=== PATIENT | male | born 1980 | race Caucasian/White ===

== ENCOUNTER 2024-02-01 07:16 | Observation (INO) ==
--- NOTE | 2023-11-07 10:34 | Anesthesiology Consultation ---
Date of Service November 07, 2023 Assessment & Plan (1) Encounter for pre-operative examination: - appendectomy now scheduled for 11/22/23 per [facility] EMR and [facility] general surgery office (the office also confirmed that procedure was R/S due to scheduling issues and nothing clinical for patient). Dr. Luz advised notifying surgeon's office appendectomy is planned four days before orthopedic surgery and consideration to postpone orthopedic surgery. Surgeon's office made aware. - Outpatient joint assessment: Patient is currently scheduled for inpatient pathway. If re-evaluated and patient/surgeon requests outpatient pathway, patient is acceptable candidate for outpatient joint program from anesthesia standpoint pending surgeon's office assessment of pt motivation/support/completion of same day joint program preop requirements. Chart Review Chart Review: Acceptable Risk for Surgery and Patient seen in Pre Admission Testing Teaching & Discussion Pre-Anesthesia Teaching/Discussion Notes: Instructed NPO after midnight before surgery, except medications with 15 cc of water. Medication instructions provided according to the PAT guidelines. History Surgery Operation Date: 11/26/23 09:00 Proposed Procedures p Left Unicompartment Knee Arthroplasty Vs. - Kiel Combs DO s Left Total Knee Arthroplasty - Kiel Combs DO Height/Weight Height: 5 ft 8 in Weight: 111.4 kg Allergies Allergy/AdvReac Type Severity Reaction Status Date / Time No Known Allergies Allergy Verified 10/25/23 14:45 Medications Home Medications Medication Instructions Recorded Confirmed Last Taken No Known Home Medications 10/25/23 10/25/23 Unknown Past Medical History Medical History Fatty liver noted on 09/2023 CT History of appendicitis (~09/2023) continued intermittent abdominal pain, following with PCP/general surgery Kidney stones (~09/2023) passed on own Left knee DJD Patient denies h/o stroke, seizures, heart attack, heart failure, DM, HTN, blood clots/DVTs or blood transfusions. Exercise / Class Metabolic Activity II 4-5 Yardwork/Stairs/Walk up hill (denies chest discomfort or shortness of breath with one flight of stairs) Past Surgical History Surgical History History of arthroscopy left knee Past Anesthesia History No Hx of Anesthesia Complications and No Family Hx of Anesthesia Complications History of PONV No Hx of PONV and No Hx of Motion Sickness Social History Smoking Status: Current every day smoker Smoking cigarettes per day: 2 cigs per day > advised npo Do You Dip or Chew Tobacco: Yes (advised npo) Hx Alcohol Use: No Hx Substance Use: No substance use type: does not use Review of Systems Patient denies chest pain, shortness of breath, dyspnea on exertion, snoring, witnessed apneas, reflux, fever, chills, cough, wheezing, or palpitations. Physical Exam Vital Signs Vitals BP 133/96 P 79 TEMP 98 SP02 95% on RA RESP 17 Physical Patient resting comfortably in chair in no acute distress, alert and oriented, responding appropriately throughout visit Full cervical extension range of motion without pain TMD 3.5 finger breadths Mallampati Score 3 Dentition: intact, denies chipped or loose teeth, caps/crowns, implants or bridges Lungs: normal respiratory effort. Good air movement, clear throughout to auscultation, no adventitious breath sounds Cardiac: regular rate and rhythm, no murmurs noted Carotid arteries: negative bruit bilat Lab Results Anesthesia Preop Results Results Anesthesia Widget: WBC 9.28 K/ul (4.8-10.8) 11/07/23 Hgb 15.8 g/dl (14.0-18.0) 11/07/23 Hct 44.9 % (42.0-52.0) 11/07/23 Plt 213 K/uL (130-400) 11/07/23 PT 10.3 Seconds (9.0-12.0) 11/07/23 PTT 29 Seconds (21-31) 11/07/23 INR 0.9 (0.9-1.1) 11/07/23 Blood Type A Negative 11/07/23 Antibody Screen NEGATIVE 11/07/23 Testing Laboratory Results 10/04/23 SODIUM: 139 POTASSIUM: 4 CHLORIDE: 107 CO2: 23 BUN: 14 CREATININE: 1 GLUCOSE: 91 Electrocardiogram Date: 10/30/23 NSR, rate 65 bpm Moderate voltage criteria for LVH, may be normal variant Chest X-Ray Date: 11/07/23 No acute cardiopulmonary findings.
--- NOTE | 2024-01-31 07:33 | History & Physical Report ---
Date of Service January 31, 2024 Assessment & Plan (1) Left knee DJD: We will proceed with a left partial knee replacement surgery. Postoperatively he will be started on aspirin for DVT prophylaxis and kept overnight in the hospital for postop medical management. He plans to use hospital home health upon discharge. History of Present Illness Chief Complaint: Medial compartmental arthritis of the left knee. Primary Care Provider: NO PCP Freddie is a pleasant 42-year-old male who works at [employer]. He had a chair kicked out from underneath him about a year ago while at work. He began having knee pain then. He denies any knee pain before the work-related incident. He then slipped on 05/18/2023 with a valgus-type injury. He had a lot of pain in his left knee. He says he feels his knee is giving out and is unstable. He says his knee is "dislocating." He saw my partner, Dr. Cade. He had an MRI of his knee and he had a left knee injection. Unfortunately, the MRI did show advanced arthritis mostly in the medial compartment of the left knee. He is really struggling with the left knee. He was placed on work restrictions. He was able to return to light duty for few weeks, but then he has since been off from work. After failing conservative treatment, he has elected to proceed with a left partial knee replacement. Allergies Allergy/AdvReac Type Severity Reaction Status Date / Time adhesive Allergy Intermediate removed Verified 01/23/24 13:32 skin Home Medications Medication Instructions Recorded Confirmed Type No Known Home Medications 10/25/23 10/25/23 History Past Med/Surg History Problem List Medial meniscus tear Left knee DJD Medical History History of anesthesia reaction (11/2023) bilat leg swelling after appendectomy [facility] History of appendicitis (~09/2023) continued intermittent abdominal pain, following with PCP/general surgery Fatty liver noted on 09/2023 CT Kidney stones (~09/2023) passed on own Left knee DJD Surgical History Hx of appendectomy (06/06/24) [facility] History of arthroscopy left knee Family History Other No family history of adverse response to anesthesia Social History Smoking Status: Current every day smoker Tobacco Type: Cigarettes and Smokeless Tobacco (Dip or Chew) Cigarettes Per Day: 2 cigs per day > advised npo; Second Hand Exposure: No; Do You Dip or Chew Tobacco: Yes (advised npo); Tobacco Cessation Education Requested by Patient: No Hx Alcohol Use: No Hx Substance Use: No Preferred Language: Wolof Communication Ability: Effective Laundry Routeman Required: No Beliefs That Will Affect Care: None Current Living Situation: Family Other Information That Helps Us Care for You: No Feels Safe at Home: Yes Safety Concerns: Feels Safe At This Time Assistive Devices: None and Walker Assistive Devices Comment: has walker for post op Review of Systems All systems reviewed & are unremarkable except as noted in HPI & below. Physical Exam On physical examination of the left knee, he has tenderness palpation of the distal medial femoral condyle and over the medial joint line.. Constitutional WD/WN, vitals as above Eyes PERRL, conjunctivae normal, anicteric sclerae ENMT external ear and nose normal, oropharynx normal Neck trachea midline, no thyromegaly Respiratory normal respiratory effort Cardiovascular RRR, no murmur, no edema Gastrointestinal (Abdomen) normal bowel sounds, soft, nontender, no hepatosplenomegaly Psychiatric A+Ox3, euthymic affect Results & Data Results & Data Laboratory Results . Diagnostic Findings X-rays of the left knee show advanced medial compartment arthritis with joint space narrowing, osteophyte formation, and [id number] articulation MRI of the left knee shows significant chondral loss of the medial compartment.. PG Care Time/CCT Total # of Minutes Spent Total Time Spent with Patient: Total time spent is greater than 50% in coordination of care (as documented) at patient's floor/unit and/or counseling patient: Coding Level of Care Code None Diagnoses Left knee DJD M17.12
[~2024-02-01 07:16] MED LIST: ROPIVACAINE 0.5% 5 MG/ML 30 ML VIAL ONE
--- NOTE | 2024-02-01 07:58 | History & Physical Bridge Note ---
Date of Service February 01, 2024 History & Physical Bridge Note I have examined the patient, reviewed the History & Physical and in the interval since the performance of the History & Physical I have noted the following changes of clinical significance: no changes noted
[2024-02-01] MEDS: dexAMETHasone**PF** 10 MG/ML VIAL IV SCH (08:00)
[2024-02-01] MEDS: GABAPENTIN 900 MG DOSE PO SCH (08:00)
[2024-02-01] MEDS: FAMOTIDINE 20 MG TAB PO SCH (08:00)
[2024-02-01] MEDS: ACETAMINOPHEN 500 MG TAB PO SCH ×2 (08:00→13:35)
[2024-02-01] MEDS: LR 500ML BOLUS, THEN 15ML/HR IV SCH (08:01)
[2024-02-01] MEDS: LR 60ML/HR IV SCH (08:01)
[2024-02-01 08:02] LABS: Basophils # (auto) 0.09 K/uL (0.00-0.20); Basophils % (auto) 0.9 %; Eosinophils # (auto) 0.32 K/uL (0.00-0.50); Eosinophils % (auto) 3.2 %; Hematocrit (blood only) 49.8 % (42.0-52.0); Hemoglobin 17.2 g/dl (14.0-18.0); Immature Granulocytes # (auto) 0.02 K/uL (0.01-0.20); Immature Granulocytes % (auto) 0.2 %; Lymphocytes # (auto) 4.53 K/uL (1.20-3.40); Lymphocytes % (auto) 45.8 %; Mean Corpuscular Hemoglobin 31.9 pg (25.0-34.0); Mean Corpuscular Hgb Conc 34.5 g/dL (32.0-36.0); Mean Corpuscular Volume 92.4 fL (80.0-100.0); Mean Platelet Volume 10.5 fL (9.4-12.4); Monocytes # (auto) 0.84 K/uL (0.11-0.59); Monocytes % (auto) 8.5 %; Neutrophils # (auto) 4.09 K/uL (1.40-6.50); Neutrophils % (auto) 41.4 %; Platelet Count 284 K/uL (130-400); RDW Coefficient of Variation 12.1 % (11.5-14.5); RDW Standard Deviation 41.3 fL (36.4-46.3); Red Blood Count 5.39 M/uL (4.70-6.10); White Blood Count 9.89 K/ul (4.8-10.8)
[2024-02-01] MEDS ORDERED: PROPOFOL IV EMULSION 10 MG/ML 20 ML VIAL IV ONE (08:08)
[2024-02-01] MEDS ORDERED: MIDAZOLAM HCL 1 MG/ML 2ML VIAL ONE ×2 (08:08)
[2024-02-01 08:16] LABS: BUN Creatinine Ratio 12.4 (10-20); Calcium 9.6 mg/dl (8.6-10.3); Creatinine Clr Calc Pharmacy 102.1 ml/min; Est GFR (African American) 91.8 ml/min; Est GFR (Non-African American) 79.2 ml/min
[2024-02-01] MEDS ORDERED: HYDROmorphone INJ 1 MG/ML SYRINGE IV PRN (08:25)
[2024-02-01] MEDS ORDERED: ONDANSETRON INJ 2 MG/ML 2 ML VIAL IV PRN ×2 (08:25→12:31)
[2024-02-01] MEDS ORDERED: KETOROLAC 30 MG/ML VIAL IV PRN (08:25)
[2024-02-01] MEDS ORDERED: ePHEDrine sulfate 50 MG/ML AMP IV PRN (08:25)
[2024-02-01] MEDS ORDERED: ATROPINE SULFATE 0.1 MG/ML 10ML SYR IV PRN (08:25)
[2024-02-01] MEDS ORDERED: fentaNYL citrate PF 100 MCG/2 ML VIAL ONE (08:26)
[2024-02-01] MEDS: TRANEXAMIC ACID 1,000 MG **IV Pre-op IV SCH (08:49)
[2024-02-01] MEDS: ceFAZolin 2000MG 2,000 MG/15 ML SYR IV SCH ×2 (09:11→16:58)
[2024-02-01] MEDS: ROPIV 0.5% 246mg, Ketorolac 30mg, EPINEPHrine 0.5mg in NSS INFIL SCH (10:01)
[2024-02-01] MEDS: ORTHO JOINT ANESTHETIC ONE (10:01)
[2024-02-01] MEDS: TRANEXAMIC ACID 1,000 MG **IV Intra-op IV SCH (10:15)
--- NOTE | 2024-02-01 10:22 | Operative Report ---
PG Post Operative Report Pre & Post Diagnosis Operation Date: 02/01/24 09:00 Pre-Op Diagnosis: Degenerative Joint Disease Left Knee Post-Op Diagnosis: Degenerative Joint Disease Left Knee I identified the patient and participated in the time-out.: Yes Procedure Operation Date: 02/01/24 09:00 Actual Procedures p Left Unicompartment Knee Arthroplasty(Left) - Kiel Combs DO Surgeon Kiel Combs DO Automotive Diagnostic Technician Kiel Mathur PA-C Estimated Blood Loss 30 Findings Consistent with Post-Op Diagnosis Specimens Left femoral tibial bone Description of Procedure Implants used: I used a Shilo persona partial knee replacement system with a size 7 femoral implant, a size G tibial implant, and a size 8 mm polyethylene bearing. On February 01, 2024 Freddie arrived at [facility] for the above procedure. He was seen in the preoperative holding area and the operative extremity identified and signed. Is given a preoperative antibiotic and a spinal anesthetic. He was taken back the operating room and laid on table in supine position. He was given basic sedation. The left knee was prepped and draped sterile fashion. A timeout was done. The patient and the operative extremity was properly identified. A midline incision was made just medial to the patella. Dissection was taken down through the fascia. A subvastus arthrotomy was used. The medial retinaculum was released and the medial compartment of the knee was exposed. There was extensive grade 4 chondral changes off the distal medial femoral condyle. The ACL was intact. I did not see any lateral compartmental or patellofemoral arthritis. A decision was made to do a partial knee replacement. The proximal tibial resection guide was placed. 4 mm was resected off the tibial plateau. The knee was then brought to full extension. A distal femoral cutting block was placed. The distal femur was then resected. The knee was then flexed. The distal femur measured to be a size 7. A size 7 femoral cutting block was then pinned into place. 2 peg holes were drilled. Posterior and chamfer cuts were then made. The tibia was then exposed. The medial meniscus was removed. The tibia measured to be a size G. A tibial cutting block was then pinned into place. 2 peg holes were drilled. The trial femoral component was then impacted into place. An 8 mm polyethylene bearing was then snapped into place. The knee was brought through full range of motion and felt to be stable. All trial components were then removed. The final size 7 femur and size G tibia components were then cemented in place with Biomet cement. After cement had dried an 8 mm polyethylene insert was then snapped into place. The knee was brought through full range of motion and felt to be stable. Surrounding soft tissues were injected with 100 cc of an orthopedic pain control cocktail. Hemostasis was obtained. The extensor mechanism was closed with #1 Vicryl. Skin was closed with 2-0 Vicryl, 3 oh V-Loc suture, and yury. He was then placed in a soft dressing. He was then taken to the postanesthesia care unit in stable condition. He tolerated the procedure well. Kiel Mathur PA-C, was present for the entire procedure. He was critical for patient positioning, prepping, draping, retraction exposure, wound closure and application of sterile dressing. I attest to the content of the Intraoperative Record and any orders documented therein. Any exceptions are noted below.
--- NOTE | 2024-02-01 11:07 | XRay Report ---
XR knee LT 1 or 2V routine CLINICAL HISTORY: Surgical Post Op TECHNIQUE: 2 views of the left knee were obtained. Comparison: Comparison is made to knee radiographs 06/12/2023 FINDINGS: Postoperative changes of partial arthroplasty is seen. IMPRESSION: Expected postoperative appearance status post placement of partial knee arthroplasty. ACT 112: Negative or not required by law. Electronically signed by: Cachorro Laird M.D. 02/01/2024 11:06 AM
--- OUTSIDE RECORDS SUMMARY | 2024-02-01 11:14 | External Medical Summary ---
Author Name Unknown Address Unknown Organization [facility] - [address] [facility] [id number] Laboratory Report Ordering Provider Test Date Status MICHAELA ROSAS 11/22/2023 06:36:26 Final Observation Date Value Abnormality Reference (Units ) Status Glucose Point of Care 11/22/2023 06:36:26 81 70-120 (mg/dL) Final Performing Location [facility] - [address] [facility] [id number]
--- OUTSIDE RECORDS SUMMARY | 2024-02-01 11:14 | External Medical Summary | Summary of Care ---
Author Name Unknown Organization [facility] Address [address] [place] [address] Phone [phone] Care Team Providers Care Automobile Mechanic Helper Name Role Phone Unavailable Primary Care Provider Unavailabl e Reason for Visit * Reason Comments Post Op Surgery Appendectomy 11/22/23 Encounter Details Date Type Department Care Team (Late st Contact Info) Description 12/07/2023 10:40 AM EDT Office Visit General Surgery, [facility] [address] [place] [id number] [place] [address] [place], [place] [id number] Postop check* Allergies No known active allergiesdocumented as of this encounter (statuses as of 12/07/2023) Medications Medication Sig Dispensed Refills Start Date End Date Status Buprenorphine HCl-Naloxone HCl 8-2 MG Sublingual Tablet Sublingual (Suboxone) Place under the tongue daily. Weaning off this for knee surgery upcoming uses every other day Active oxyCODONE-Acetamino phen 5-325 MG Oral Tablet (Percocet) Take 1 Tablet by mouth every 4 hours as needed for Pain, Moderate or Pain, Severe. 5 Tablet 11/22/2023 Active traMADol HCl 50 MG Oral Tablet (Ultram) Take 1 Tablet by mouth every 6 hours as needed for Pain, Moderate or Pain, Severe. 5 Tablet 11/22/2023 Active Additional Information Patient not taking.Reported on 12/07/2023 documented as of this encounter (statuses as of 12/07/2023) Active Problems Problem Noted Date Diagnosed Date Fatty liver 11/22/2023 Disease of appendix, unspecified 11/07/2023 Appendix disease 10/30/2023 Right lower quadrant abdominal pain 10/30/2023 Nephrolithiasis 10/22/2023 Opioid dependence, in remission 01/04/2021 documented as of this encounter (statuses as of 12/07/2023) Resolved Problems Problem Noted Date Diagnosed Date Resolved Date Ureterolithiasis 10/03/2023 10/22/2023 Hydronephrosis 10/03/2023 10/22/2023 documented as of this encounter (statuses as of 12/07/2023) Immunizations Name Administration Dates Next Due COVID-19 mRNA, LNP-s, No Pre serve, 2-Dose Series (Pfizer) 12/02/2020,11/04/2020 TDAP (age 10 and older)(Boostrix) 12/23/2018 documented as of this encounter Social History Tobacco Use Types Packs/Day Years Used Date Smoking Tobacco: Every Day Cigarettes Smokeless Tobacco: Current Tobacco Cessation:Ready to Q uit: No; Counseling Given: No Alcohol Use Standard Drinks/Week Comments No 0 (1 standard drink = 0.6 oz pur e alcohol) PHQ-2 Answer Date Recorded PHQ Adult Total Score 0 02/08/2021 Utilities Answer Date Recorded Do you have trouble paying y our heating, water, or electric bill? (Adult - for ages 18 years and over) Not on file 12/04/2023 Is your family able to pay t he heat, water, or electric bill? (Household - for ages 0-17 years) Not on file 12/04/2023 Does your family have access to good internet? (Household - for ages 0-17 years) Not on file 12/04/2023 Social Connections Answer Date Recorded How often do you feel lonely or isolated from those around you? (Adult - for ages 18 years and over) Not on file 12/04/2023 Sex and Gender Information Value Date Recorded Sex Assigned at Male 01/04/2021 3:08 PM EDT Gender Identity Male 01/04/2021 3:08 PM EDT Sexual Orientation Straight 01/04/2021 3: 08 PM EDT Job Start Date Occupation Industry Not on file Not on file Not on file documented as of this encounter Last Filed Vital Signs Vital Sign Reading Time Taken Comments Blood Pressure - - Pulse 67 12/07/2023 10:44 AM EDT Temperature 35.9 C (96.6 F) 12/07/2023 10:44 AM E DT Respiratory Rate - - Oxygen Saturation 96% 12/07/2023 10:44 AM EDT Inhaled Oxygen Concentration - - Weight 111.6 kg (246 lb) 12/07/2023 10:44 AM EDT Height 175.3 cm (5' 9") 12/07/2023 10:44 AM EDT Body Mass Index 36.33 12/07/2023 10:44 AM EDT documented in this encounter Functional Status Functional Status Response Date of Assess ment Are you deaf or do you have serious difficulty h earing? No 10/03/2023 Are you blind or do you have serious difficulty seeing, even when wearing glasses? No 10/03/2023 Do you have serious difficul ty walking or climbing stairs? (5 years old or older) No 10/03/2023 Do you have difficulty dress ing or bathing? (5 years old or older) No 10/03/2023 Because of a physical, menta l, or emotional condition, do you have difficulty doing errands alone such as visiting a doctor s office or shopping? (15 years old or older) No 10/03/19 Cognitive Status Response Date of Assessm ent Because of a physical, menta l, or emotional condition, do you have serious difficulty concentrating, remembering, or making decisions? (5 years old or older) No 10/03/2023 documented as of this encounter Progress Notes * Guille Aguirre MD - 12/07/2023 10:55 AM EDT SUBJECTIVE: Freddie Garnett is a 43 year old male. Chief Complaint Patient presents with Post Op Surgery Appendectomy 11/22/23 HPI: Freddie Garnett is being seen a little over 2 weeks status post laparoscopic appendectomy. He has occasional twinge of discomfort but otherwise no pain. His preoperative symptoms have resolved and he states he feels much better than he did prior to surgery. He has no nausea or vomiting. His bowels are moving. He had a reaction to the tape but there has no erythema or drainage from the incisions. The pathology revealed appendix with retention cyst. OBJECTIVE: PHYSICAL EXAM: Pulse 67 | Temp 35.9 C (96.6 F) (Tympanic) | Ht 1.753 m (5' 9") | Wt 111.6 kg (246 lb) | SpO2 96% | BMI 36.33 kg/m | BSA 2.33 m General: alert and no distress Abdomen: abdomen soft, non-tender, normal bowel sounds, and no masses or organomegaly ASSESSMENT: Z09 Postop check (primary encounter diagnosis) PLAN: He is doing well postoperatively. He can now begin to return to his normal activities of daily living and follow up as needed. Guille Aguirre MD 12/07/2023 documented in this encounter Nursing Notes * Beth Thompson LPN - 12/07/2023 10:45 AM EDT Chief Complaint Patient presents with Post Op Surgery Appendectomy 11/22/23 Pulse 67 | Temp 35.9 C (96.6 F) (Tympanic) | Ht 1.753 m (5' 9") | Wt 111.6 kg (246 lb) | SpO2 96% | BMI 36.33 kg/m | BSA 2.33 m documented in this encounter Plan of Treatment Health Maintenance Due Date Last Done Comments Lipid Panel 1980 Pneumococcal Vaccine: Pediatrics (0 to 5 Years) and At-Risk Patients (6 to 64 Years) (1 of 2 - PCV) 1986 HIV Screening 10/28/1995 Hepatitis B (2 of 3 - 3-dose series) 05/14/1998 04/16/1998 Hepatitis C Screening 1998 Depression Screening 02/08/2022 02/08/2021 COVID-19 Vaccine ( season) 2023 12/02/2020, 11/04/2020 Influenza Vaccine (FLU shot) (Season Ended) 2024 Diabetes Screening 11/21/2026 11/22/2023, 0 10/04/2023, 10/03/2023, Additional history exists DTaP,Tdap,and Td Vaccines (2 - Td or Tdap) 12/23/2028 12/23/2018 GARDASIL-HPV IMMUNIZATION SERIES Aged Out No longer eligible based on patient's age to complete this topic MENINGOCOCCAL (MENACTRA/MENVEO) Aged Out No longer eligible based on patient's age to complete this topic documented as of this encounter Medical Devices Not on filedocumented as of this encounter Visit Diagnoses Diagnosis Postop check- Primary Follow-up examination, following unspecified surgery documented in this encounter Advance Directives * Full Code (Latest Code Status on File) Date Activated Date Inactivated Comments 11/22/2023 6:21 AM 11/22/2023 3:45 PM This order ref lects the patients wishes and were consensually agreed upon. Question Answer Comments Discussion of Advance Directives occurred with: Patient * Full Code Date Activated Date Inactivated Comments 10/03/2023 8:30 PM 10/04/2023 1:01 PM This order r eflects the patients wishes and were consensually agreed upon. Question Answer Comments Discussion of Advance Directives occurred with: Patient Does the patient have a Living Will? No Does the patient have Health Care Power of Attor keara? No
--- OUTSIDE RECORDS SUMMARY | 2024-02-01 11:14 | External Medical Summary | Summary of Care ---
Author Name Unknown Organization [facility] Address [address] [place] [address] Phone [phone] Care Team Providers Care Pole Classifier Name Role Phone Unavailable Primary Care Provider Unavailabl e Reason for Visit * Reason Onset Date Comments Post-Op 11/26/2023 Post op call Encounter Details Date Type Department Care Team (Late st Contact Info) Description 11/26/2023 11:00 AM EDT Scheduled Telephone General Surgery, [facility] [address] [phone] [place], Nurse Follow Up Phone Call Schedule Gen Surg [address] [place], [place] [phone] Allergies No known active allergiesdocumented as of this encounter (statuses as of 11/26/2023) Medications Medication Sig Dispensed Refills Start Date End Date Status Buprenorphine HCl-Naloxone HCl 8-2 MG Sublingual Tablet Sublingual (Suboxone) Place under the tongue daily. Weaning off this for knee surgery upcoming uses every other day Active oxyCODONE-Acetaminoph en 5-325 MG Oral Tablet (Percocet) Take 1 Tablet by mouth every 4 hours as needed for Pain, Moderate or Pain, Severe. 5 Tablet 11/22/2023 Active traMADol HCl 50 MG Oral Tablet (Ultram) Take 1 Tablet by mouth every 6 hours as needed for Pain, Moderate or Pain, Severe. 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 Right lower quadrant abdominal pain 10/30/2023 Nephrolithiasis 10/22/2023 Opioid dependence, in remission 01/04/2021 documented as of this encounter (statuses as of 11/26/2023) Resolved Problems Problem Noted Date Diagnosed Date Resolved Date Ureterolithiasis 10/03/2023 10/22/2023 Hydronephrosis 10/03/2023 10/22/2023 documented as of this encounter (statuses as of 11/26/2023) Immunizations Name Administration Dates Next Due COVID-19 mRNA, LNP-s, No Pre serve, 2-Dose Series (Pfizer) 12/02/2020,11/04/2020 TDAP (age 10 and older)(Boostrix) 12/23/2018 documented as of this encounter Social History Tobacco Use Types Packs/Day Years Used Date Smoking Tobacco: Every Day Cigarettes Smokeless Tobacco: Current Alcohol Use Standard Drinks/Week Comments No 0 (1 standard drink = 0.6 oz pur e alcohol) PHQ-2 Answer Date Recorded PHQ Adult Total Score 0 02/08/2021 Sex and Gender Information Value Date Recorded Sex Assigned at Male 01/04/2021 3:08 PM EDT Gender Identity Male 01/04/2021 3:08 PM EDT Sexual Orientation Straight 01/04/2021 3: 08 PM EDT Job Start Date Occupation Industry Not on file Not on file Not on file documented as of this encounter Functional Status Functional Status Response [...] No 10/03/2023 documented as of this encounter Miscellaneous Notes * Telephone Encounter - Beth Thompson LPN - 11/26/2023 10:39 AM EDT PATIENT IS S/p appendectomy on 11/22/[address] Aguirre Pain Level- 1-10 " 4-5" Meds being taken for pain- ibuprofen Are pain meds effective- yes Incision sites- good Does the patient have a drain- no Does the patient have dressings? Are they aware of dressing instructions- no Appetite- fair Nausea/vomiting- no Bowel movement- yes Activity- as tolerated Complying with activity restrictions- yes Coughing and deep breathing- no Questions or concerns- legs swelling less today then yesterday , denies pain or tenderness of legs Post operative follow up scheduled for 12/07/23 documented in this encounter Plan of Treatment Upcoming Encounters Date Type Department Care Team (Late st Contact Info) Description 12/07/2023 10:40 AM EDT [place] [address] Guille Aguirre MD [address] [place] [address] Health Maintenance Due Date Last Done Comments Lipid Panel 1980 Pneumococcal Vaccine: Pediatrics (0 to 5 Years) and At-Risk Patients (6 to 64 Years) (1 of 2 - PCV) 1986 HIV Screening 10/28/1995 Hepatitis B (2 of 3 - 3-dose series) 05/14/1998 04/16/1998 Hepatitis C Screening 1998 Depression Screening 02/08/2022 02/08/2021 COVID-19 Vaccine (3 - season) 2023 12/02/2020, 11/04/2020 Influenza Vaccine (FLU [...] Not on filedocumented as of this encounter Advance Directives * Full Code [...]
--- OUTSIDE RECORDS SUMMARY | 2024-02-01 11:14 | External Medical Summary | Summary of Care ---
Author Name Unknown Organization [facility] Address [address] [place] [address] Phone [phone] Care Team Providers Care Cloth Shrinking Tester Name Role Phone Unavailable Primary Care Provider Unavailabl e Reason for Visit * Auth/Cert Specialty Diagnoses / Procedures Referred By Sari recinos Referred To Contact Diagnoses Disease of appendix, unspecified Disease of appendix, unspecified [K38.9] Procedures LAPAROSCOPY;APPENDECTOMY LAPAROSCOPIC APPENDECTOMY Guille Aguirre MD [address] [place] [address] [place] [address] Referral ID Status Reason Start Date Expiration Date Visits Re quested Visits Authorized [id number] Encounter Details Date Type Department Care Team (Latest Contact Info) Description 11/22/2023 6:19 AM EDT - 11/22/2023 11:40 AM EDT Hospital Encounter OR [facility], Operating Room, Main Hospital 1st Floor [address] [place] [address] Guille Aguirre MD [address] [place] [address] Discharge Disposition: Home - Self Care Allergies No known active allergiesdocumented as of this encounter (statuses as of 11/22/2023) Medications Medication Sig Dispensed Refills Start Date [...] as of this encounter (statuses as of 11/22/2023) Active Problems Problem Noted Date Diagnosed Date Fatty liver 11/22/2023 Disease of appendix, unspecified 11/07/2023 Appendix disease 10/30/2023 Right lower quadrant abdominal pain 10/30/2023 Nephrolithiasis 10/22/2023 Opioid dependence, in remission 01/04/2021 documented as of this encounter (statuses as of 11/22/2023) Resolved Problems Problem Noted Date Diagnosed Date Resolved Date Ureterolithiasis 10/03/2023 10/22/2023 Hydronephrosis 10/03/2023 10/22/2023 documented as of this encounter (statuses as of 11/22/2023) Immunizations Name Administration Dates Next Due COVID-19 mRNA, LNP-s, No Pre serve, 2-Dose Series (InCytu) 12/02/2020,11/04/2020 TDAP (age 10 and older)(Boostrix) 12/23/2018 [...] Sign Reading Time Taken Comments Blood Pressure 151/95 11/22/2023 11:30 AM EDT Pulse 71 11/22/2023 11:30 AM EDT Temperature 36.6 C (97.9 F) 11/22/2023 10:02 AM E DT Respiratory Rate 13 11/22/2023 11:30 AM EDT Oxygen Saturation 98% 11/22/2023 11:30 AM EDT Inhaled Oxygen Concentration - - Weight - - Height - - Body Mass Index - - documented in this encounter Functional Status Functional [...] No 10/03/2023 documented as of this encounter Discharge Instructions * Discharge Instr - AVS* Guille Aguirre MD - 11/22/2023 9:40 AM EDT Discharge Date: 11/22/2023 The information below provides you with the instructions and the list of medications you need to betaking following discharge from the hospital. If you have any questions, please ask before leaving.Please carry this letter with you when you see your doctor in the clinic. If you have questions, you can reach us at the numbers above. Post Anesthesia Instructions: 1. Do not drive today. 2. Resume driving when surgeon permits. 3. Do not make important decisions or sign legal documents today. 4. Call surgeon for: Temperature evaluation greater than 101 degrees Uncontrollable pain Excessive Bleeding Persistent Nausea and vomiting Medication intolerance (nausea, vomiting, or rash) 5. For nausea and vomiting use only clear liquids such as: tea, soda, bouillon until nausea subsides, then gradually increase diet as tolerated. 6. If you have any concerns or questions, call your surgeon's office at [phone] . If the physician is unavailable and it is an emergency, call 911 or go to the nearest emergency room. Special Care / Other: Instructions for: Laparoscopic Cholecystectomy INCISION CARE: If present, remove any outer dressing(s) in 24 hours. The incision(s) may be sealed with yury, askin adhesive (Dermabond), or covered with white adhesive tapes known as steri-strips. Either way there is no need to cover up the incisions again with gauze. SHOWER: You may shower 24 hours after surgery and get the incision(s) or steri-strips wet with soapy water and gently pat them dry. If the steri-strips come off in the shower, do not become concerned. If they are still in place 10 days after surgery, you may remove them. PAIN MEDICATION: You will be given a prescription for a narcotic pain medication (usually Vicodin or Percocet). Options for non-constipating pain medications include products that include ibuprofen or Tylenol. To combat constipation, you may take over the counter laxatives, fiber therapy, or prune juice. COMMON COMPLAINTS: Shoulder pain and gas pains from the carbon dioxide used during the procedure is common. Your body absorbs this gas naturally over a 48-72 hour period. Tylenol (Acetaminophen) or Ibuprofen (Motrin) is usually sufficient to relieve this discomfort. Activity : Do not do any heavy lifting (more than 10 pounds) or any vigorous exercise for 2 weeks. Return to School or Work: Limitations as above Diet: Resume previous diet Follow-up Visit with: Dr. Aguirre When: in 2 weeks Discharged To: Home documented in this encounter H&P Notes * Guille Aguirre MD - 11/22/2023 7:30 AM EDT HISTORY & PHYSICAL INTERVAL NOTE [facility] [address] [facility] [id number] History and Physical Update: Name: Freddie Garnett Location: [place] [facility]/[place] Date: 11/22/2023 Time: 7:30 AM DATE OF HISTORY AND PHYSICAL: 10/30/23 BP: 153 mmHg/98 mmHg (11/22/23647) Pulse: 60 (11/22/23647) Temp: 36.28 C (11/22/23647) Temp Summary: Temp Min: 36.3 C (97.3 F) Max: 36.3 C (97.3 F) SpO2: 98 % (11/22/23647) O2 flow rate: Supplemental O2 Delivery: Room Air, None (11/22/23647) Does patient take a beta los? No Did patient stop anticoagulants? None Heart Exam: regular rate and rhythm Lung Exam: clear to auscultation bilaterally Other Pertinent Physical Exam: Abdomen: Soft nontender nondistended I have reviewed the H&P previously performed and examined the patient today. There are no new findings noted. Source Note - Guille Aguirre MD - 10/30/2023 2:00 PM EDT SUBJECTIVE: Freddie Garnett is a 43 year old male. Chief Complaint Patient presents with NEW PATIENT Enlarged appendix HPI: Freddie Garnett is referred by Moriah Mariee PA-C for evaluation of an abnormal appendix. The patient states that he developed pain that was more in the right flank than anywhere else. He was evaluated and was found to have a UPJ obstructing kidney stone. The CT scan also showed a dilated appendix. It was 11 mm in size. In comparison to a CT scan he had in 2010 it was unchanged. There was no periappendiceal fat stranding. The patient had developed pain in the right lower quadrant at the same time that he had the right flank pain. The right flank pain resolved after having passed his kidney stone however the right lower quadrant abdominal pain has not. That pain persists. There has a dull ache they are all of the time. He does not get nausea or vomiting. He has not had fever or chills. His bowels are moving. There has no melena or hematochezia. He has no dysuria or hematuria. He was also concerned because his [id number] within the last 2 years as a result of sepsis secondary to ruptured appendicitis. Past Medical History: Diagnosis Date Kidney stone Opioid abuse (HCC) Past Surgical History: Procedure Laterality Date [place] ARTHROSCOPY KNEE DIAGNOSTIC W/WO SYNOVIAL BX SPX Left 1996 Current Outpatient Medications Medication Sig Dispense Refill Buprenorphine HCl-Naloxone HCl 8-2 MG Sublingual Tablet Sublingual (Suboxone) Place under the tongue daily. Weaning off this for knee surgery upcoming uses every other day No current facility-administered medications for this visit. Review of patient's allergies indicates: No Known Allergies Social History: Social History Tobacco Use Smoking status: Every Day Current packs/day: 0.50 Types: Cigarettes Smokeless tobacco: Current Substance Use Topics Alcohol use: No Vaping/E-Cigarette Use Vaping/E-Cigarette Use Never User Vaping/E-Cigarette Substances Vaping/E-Cigarette Devices OBJECTIVE: PHYSICAL EXAM: Pulse 82 | Temp 35.6 C (96.1 F) (Tympanic) | Ht 1.753 m (5' 9") | Wt 111.9 kg (246 lb 9.6 oz) |SpO2 97% | BMI 36.42 kg/m | BSA 2.33 m General: alert and no distress Head: Normocephalic, No masses, lesions, tenderness or abnormalities Neck: supple, no adenopathy Heart: regular rate & rhythm Lungs: chest symmetric with normal AP diameter, no chest deformities noted, no chest wall tenderness, lungs clear to auscultation Abdomen: abdomen soft, normal bowel sounds, and no masses or organomegaly, mild tenderness to moderate palpation in the right lower quadrant Back: back symmetric, no curvature, no costovertebral angle tenderness, range of motion is normal ASSESSMENT: K38.9 Appendix disease (primary encounter diagnosis) R10.31 Right lower quadrant abdominal pain PLAN: This patient has had an abnormal appendix appearance now for at least 3 years. He now has symptoms of discomfort and tenderness in the right lower quadrant. There has no evidence of acute appendicitis however I think it is likely that the enlarged appendix may be causing his symptoms. Were planningfor laparoscopic appendectomy. I explained the possible need to convert to an open procedure. We discussed the possible complications of that procedure and I answered his questions. He has signed a consent form. Guille Aguirre MD 10/30/2023 documented in this encounter Nursing Notes * Nelia Young, KIMI - 11/22/2023 11:38 AM EDT Vitals stable throughout. Able to tolerate PO fluids and void spontaneously. Verbalized understanding of discharge instructions. No questions, complaints, or concerns voiced. Discharged home w/ family. * Daniel Alegria RN - 11/13/2023 2:04 PM EDT PREOP PATIENT INFORMATION AND EDUCATION: MEDICATION INSTRUCTIONS: STOP taking the following medications the noted number of days prior to surgery/procedure unless otherwise specified by your surgeon: Please follow surgeon's instructions regarding use of Aspirin, Coumadin, Plavix, Eliquis, and any other blood thinner including NSAIDs (non-steroidal anti- inflammatory drugs, eg, Advil, Ibuprofen, Motrin, Aleve, Naproxen); if you have any questions regarding your anticoagulation therapy please contact your surgeon's clinic. Please verify any proposed stoppage of your anticoagulation therapy with the agent's prescribing provider. 10 days prior to surgery/procedure Stop all Herbal supplements, Green Tea, Turmeric, Melatonin, CBD, THC, etc. Stop all Vitamins (including Vitamin E) 24 hours prior to surgery/procedure DO NOT consume any alcohol. DO NOT use medical marijuana. DO NOT smoke or use tobacco products of any kind after midnight prior to surgery. *Using any of these products may increase your risks of procedural complications. IF IT IS LESS THAN RECOMMENDED STOPPAGE TIME PLEASE STOP AT TIME OF NOTIFICATION. FASTING RECOMMENDATIONS: To reduce risk, it is important for all elective surgery patients to follow the specific fasting guidelines listed below. If you have received more stringent guidelines, please follow the MOST RESTRICTIVE guidelines that you have been provided. DO NOT EAT after midnight on the night prior to your surgery date. You are allowed to drink clear liquids up to two hours prior to arrival time to the hospital or surgery center. Examples of clear liquids include water, clear fruit juice without pulp, clear carbonated beverages, clear tea, and black coffee. Any drinks given by your surgical service take as directed. /pediatric patients who currently drink breast milk, infant formula, and non-human milk must not eat after midnight. These patients are allowed to drink only the liquids listed below up to two hours prior to arrival time to the hospital or surgery center: Ingested Material Minimum Fasting Time Clear liquid After midnight up to 2 hours prior to arrival time Breast milk Up to 4 hours prior to arrival time Infant formula Up to 6 hours prior to arrival time Non-human milk Up to 6 hours prior to arrival time THE DAY BEFORE YOUR SURGERY: -Drink plenty of fluid the day before your surgery. Contact your surgeon's office if you develop any of the following within 2 weeks of surgery: A cold Infection Fever Shingles Chicken pox or exposure to chicken pox Open areas such as scrapes, cuts, rascon or other skin conditions Rashes GENERAL INSTRUCTIONS FOR PREPARING FOR SURGERY: BATHING INSTRUCTIONS: Bathe the evening prior to and the morning of surgery/procedure. Cleanse your body using ONLY anti-bacterial soap (eg, Dial, Safeguard) or any specific soap/cleansers and instructions provided by your surgeon (eg, Chlorhexidine). -You should brush your teeth the morning of surgery. Do NOT apply any lotions, powders, sprays, creams, oils, make-up, or deodorants after bathing. No hairspray, or nail irish on fingers or toes. Day of surgery/procedure do not use tampons. If you wear contacts wear your eyeglasses if available otherwise bring your contact supplies with you to remove them prior to your surgery/procedure. If you wear glasses or dentures, please bring cases in which you can store them during your surgery. Please remove all piercings and jewelry and leave them at home. Wear comfortable and loose clothing. -Please leave all valuables at home. -If you use a CPAP and are staying overnight, please bring your mask and tubing with you to the hospital. -If you use an assistive mobility device (walker, cane, etc), please label it with your name and bring to hospital. -An escort company truck driver is required if you are being discharged the same day of the surgery. You should have a responsible adult over the age of 18 [address] you home. This person should be present with youin the hospital at the time of discharge and for the first 24 hours after the surgery to support your needs. If you are taking a taxi home, you must have your responsible green party accompany you in the taxi ride home at the time of discharge. OR times subject to change. Please check voicemail messages the day/evening before your surgery forany updates. PRE-OP: You will be taken to the pre-op area where your vital signs (blood pressure, pulse and temperature)will be taken. Any preparations that need to be done will be done there. When it is time for your surgery, you will be taken to the operating room. PARENTS OF PEDIATRIC PATIENTS WILL BE ALLOWED TO STAY WITH THEIR CHILDREN UNTIL THEY ARE ESCORTED TO THE OPERATING ROOM OUTPATIENT SURGERY PATIENTS: After your surgery you will be taken to the Same Day Surgery Unit when you are awake and will go home from there. You will get instructions about your home care before you leave. Arrange to have someone drive you home from the hospital. You may not drive for 24 hours after anesthesia. You must havean adult stay with you at home for 24 hours after your operation. This is very important. If you are not able to comply with these guidelines, your Short Stay surgery cannot be done. ADMISSION PATIENTS: After your stay in the recovery area, you will be taken to your room. Your family may visit you in your room based on current visitation policy. If a next day discharge is expected, it is important to make arrangements for a company truck driver to take you home. Please be aware our visitation policies are subject to change Professionals, attendants, caregivers or family members are allowable visitors for patients with intellectual, developmental or cognitive disabilities, communication barriers or behavioral concerns. Because patients' and families' needs vary, they will be taken into account when applying visitation restrictions. [facility]: ext 4 Please enter through the Main Entrance of the [facility] which is directly across from the main parking lot. Stop at the registration desk, which is inside the main entrance, to register first. They will then direct you back to Same Day Surgery. You will be called the day before surgery (on Sunday if your surgery is Sunday) with the time to be at the hospital. If you have notbeen called by 4:00 p.m., please call [phone] and ask for the nursing color control supervisor. THANK YOU FOR CHOOSING [facility]! documented in this encounter OR Notes * OR Surgeon - Guille Aguirre MD - 11/22/2023 9:49 AM EDT [facility] [address] [facility] [id number] OPERATIVE REPORT Name: Freddie Garnett Date: 11/22/2023 Time: 9:49 AM Location: [facility] Service: General Surgery Date of Operation: 11/22/2023 Pre-op Diagnosis: Abnormal appendix Post-op Diagnosis: Same Surgeon: Guille Aguirre MD Assistants: None Anesthesia: General endotracheal anesthesia Operation: Laparoscopic appendectomy Findings: For all but the proximal 1-1/2 to 2 cm the appendix was dilated. It was firm. There was no surrounding fatty thickening. There was no fluid. There was no evidence of perforation. There was no abscess. The proximal 1-1/2 to 2 cm of the appendix appeared normal. The cecum appeared normal especially at the base of the appendix. The visible small bowel appeared normal. Case Acuity: Urgent Wound Class: Clean Specimen and Disposition: Appendix to Pathology Estimated Blood Loss: 10 mL Fluids: 1000 mL Urine Output: 200 mL Drains/Implants: none Complications: none Postoperative Condition: stable Indications and History: The patient had been having pain mostly in the right flank area but also in the right lower quadrant. He had a UPJ obstructing kidney stone that passed a kidney stone in the flank pain resolved but the right lower quadrant pain did not. During the evaluation for the discomfort he had a CT scan thatdemonstrated a dilated appendix with diameter of 11 mm. This was compared to a CT scan in 2010 and was unchanged. Had no nausea or vomiting but only the persistent intermittent dull ache. Description of Operation: The patient was identified and taken to the operating room and placed on the operating table and positioned. He was administered general anesthesia and the area was prepped and draped in the usual sterile fashion. A time-out was held. The skin and subcutaneous tissue inferior to the umbilicus was anesthetized with 0.5% Marcaine. Skin incision was made carried down through the subcutaneous tissue to the fascia which was grasped with 2 Ariadna clamps incised between. The peritoneum was identified incised and the introducer was placed bluntly. The abdomen was then insufflated to a pressure of 15 mmHg with carbon dioxide. A site for the lower midline introducer was identified chosen. The skin layers were similarly anesthetized. Incision was made the introducer was placed under direct vision. The patient had a generous omentum and he would to be placed in Trendelenburg and steep left airplaneposition and I was then able to retract the omentum out of the right lower quadrant. I then retracted the small bowel out of the right lower quadrant that exposed the appendix. Site for the left lower quadrant introducer was then chosen. The layers were anesthetized and incision was made the introducer was placed under direct vision. Traction was placed anteriorly on the appendix and some of the attachment of the appendix to the posterior abdominal wall were taken down which allowed me to further elevate the appendix. I was then able to establish a plane between the appendix and the mesoappendix at its base that I divided the mesoappendix with the vascular load of the Endo-ELEAZAR stapler. There were 2 areas of oozing along that staple line that were controlled easily with clips. The appendixwas then elevated. It was identified to have been freed down to the base of the appendix at its junction with the cecum. The appendix was then amputated off the cecum using the blue load of the Endo-ELEAZAR stapler. The appendix was placed into an endobag and brought out through the left lower quadrantintroducer site. That introducer was replaced. The right lower quadrant was irrigated. There were 2other areas of oozing along the omental dissection points that were controlled with clips. The right lower quadrant was irrigated the irrigation was removed that was repeated until the return was clear. As much fluid that I could removed from the pelvis was also removed. I then waited 3 minutes by the clock and reinspected the right lower quadrant than there was no evidence of any further bleeding. The introducers were removed after the gas was allowed to escape from the abdomen. The fascia of the umbilical and left lower quadrant introducer sites was closed with interrupted 0 Vicryl the skinof all the incisions was closed with 4-0 Monocryl in either an interrupted or running subcuticular fashion. The skin was further anesthetized with the same local at all the incision sites. The skin was then cleansed and dried. Mastisol was placed and Steri-Strips were applied. Sponge needle and instrument counts were correct x2 prior to closure. Patient tolerated the surgical procedure without complication was transferred to recovery. Attestation: I performed the procedure Guille Aguirre MD 11/22/2023 This chart was completed in part utilizing The [employer] Direct Voice Recognition Software. Grammatical errors, random word insertions, prounoun erros, and incomplete sentences are an occasional consequence of this system due to software limitations, ambient noise, and hardware issues. Any formal questions or concerns about the content, text, or information contained within the body of this dictation should be directly addressed to the provider for clarification documented in this encounter Plan of Treatment Upcoming Encounters Date Type Department Care Team (Late st Contact Info) Description 11/26/2023 11:00 AM EDT Scheduled Telephone General Surgery, [address] [address] [facility], Nurse Follow Up Phone Call Schedule Gen Surg [address] [place] [id number] 12/07/2023 10:40 AM EDT Office Visit General Surgery, [address] [address] Guille Aguirre MD [address] [place] [id number] Pending Results Name Type Priority Associated Diagnoses Date /Time SURGICAL PATHOLOGY Pathology Routine Disease of appendix, unspecified 11/22/2023 8:30 AM EDT Scheduled Orders Name Type Priority Associated Diagnoses Orde r Schedule SURGICAL PATHOLOGY Pathology Routine Disease of appendix, unspecified Release Upon Ordering for 1 Occurrences starting 11/22/2023, 1 completed Scheduled Procedures Name Priority Associated Diagnoses Date/Ti me LAPAROSCOPIC APPENDECTOMY Disease of appendix, unspecified 11/22/2023 7:00 AM EDT Health Maintenance Due Date Last Done Comments [...] Not on filedocumented as of this encounter Procedures Procedure Name Priority Date/Time Associated Diagnosis Comments GLUCOSE METER, POINT OF CARE LUIS 11/22/2023 6:36 AM EDT documented in this encounter Results * GLUCOSE METER, POINT OF CARE (11/22/2023 6:36 AM EDT) Glucose Meter 81 70 - 120 mg/dL 11/22/2023 6:47 AM EDT LABORATORY [facility] Blood Whole blood specimen / Unknown 11/22/2023 6:36 AM EDT 11/22/2023 6:47 AM EDT Guille Aguirre MD LAB POINT OF CARE TE ST DOCKED DEVICE U[facility]OLICITED [facility] [id number] [place] [address] documented in this encounter Visit Diagnoses Diagnosis Disease of appendix, unspecified- Primary Disease of appendix, unspecified documented in this encounter Administered Medications Inactive Administered Medications - up to 3 most recent administrations Medication Order MAR Action Action Date Dose Rate Site Acetaminophen (Tylenol) tab 975 mg 975 mg, Oral, PREOP, First dose on Kaleigh 11/22/23 at 0700, Last dose on Kaleigh 11/22/23 at 0700, For 1 dose, Maximum 4 g acetaminophen/day. Avoid in patients with severe hepatic impairment or severe active liver disease. Administer 60 minutes prior to OR., Pre-Op Given 11/22/2023 6:29 AM EDT 975 mg ceFAZolin in dextrose (Ancef) ivpb 2 g 2 g, IV Piggyback, PREOP, 1 dose, First dose on Kaleigh 11/22/23 at 0700, Administer 60 minutes prior to skin incision, Pre-Op New Bag 11/22/2023 7:25 AM EDT 2 g 100 mL/hr Gabapentin (Neurontin) cap 300 mg 300 mg, Oral, PREOP, First dose on [place]aleigh 11/22/23 at 0700, Last dose on Kaleigh 11/22/23 at 0700, For 1 dose, Reduce dose to 100mg for renal impairment with CrCl less than 30 ml/min or for age above 65 years old Avoid if Alzheimer/dementia and CVA in past 3 months. Do Not use with Pregabalin. Administer 60 minutes prior to OR, Pre-Op Given 11/22/2023 6:29 AM EDT 300 mg HYDROmorphone (Dilaudid) inj 0.5 mg 0.5 mg, IV Push, Q5 MIN PRN Pain, Severe, Pain, Moderate, Starting on Kaleigh 11/22/23 at 1025, Until Kaleigh 11/22/23 at 1545, For 8 doses, Administer only postop in PACU. Hold for respiratory rate less than 12. Administer up to a total of 4 mg., PACU isolyte-S pH 7.4 infusion Intravenous, at 25 mL/hr, Plasma-LYTE 148, isolyte-S, and isolyte-S pH 7.4 are considered equivalent - including for MAR barcode scanning., CONTINUOUS, Starting on Kaleigh 11/22/23 at 0700, Until [place] 11/22/23 at 1545, Pre-Op Rate Change 11/22/2023 9:06 AM EDT 900 mL/hr Continue from Pre-Op 11/22/2023 7:28 AM EDT 25 mL/hr New Bag 11/22/2023 6:49 AM EDT 25 mL/hr ondansetron (Zofran) inj 4 mg 4 mg, IV Push, Q6H PRN Nausea, Starting on [place] 11/22/23 at 1025, Until [place] 11/22/23 at 1545, For 1 day, Administer only during the first hour post-op in PACU., PACU oxygen GAS Inhalation, OXYGEN, First dose on Kaleigh 11/22/23 at 1100, Until Discontinued, Device/Managed by: Low Flow Device, Goal SPO2 (%): 91-95, Starting Device: Nasal Cannula, Initial Flow Rate (LPM): 2, Lowest Support: Nasal Cannula: Flow 0-6 LPM. Titrate up/down by 1 LPM., Higher Support: Non-Rebreather (NRB) Mask: Minimum of 10 LPM. Titrate to maintain bag inflation., Titration Interval: Q2 minutes and as needed., Notify Provider: Other, Notify Provider [other]: If SpO2 less than 88% or NOT maintaining SpO2 greater than 92% notify physician immediately., Until awake OR SpO2 greater than 95% for 15 minutes, then Titrate O2 flow rate down to maintain SpO2 greater than 92% If SpO2 is less than 88% place patient on NRB mask at 10 LPM documented in this encounter Active and Recently Administered Medications Times are shown in EDT. Scheduled Medication Order 11/20/2023 11/21/2023 11/22/2023 Acetaminophen (Tylenol) tab 975 mg (COMPLETED) 975 mg, Oral, PREOP, First dose on Kaleigh 11/22/23 at 0700, Last dose on [place] 11/22/23 at 0700, For 1 dose, Maximum 4 g acetaminophen/day. Avoid in patients with severe hepatic impairment or severe active liver disease. Administer 60 minutes prior to OR., Pre-Op 06 (Given - Provid er: Nelia Young RN) ceFAZolin in dextrose (Ancef) ivpb 2 g (COMPLETED) 2 g, IV Piggyback, PREOP, 1 dose, First dose on [place]aleigh 11/22/23 at 0700, Administer 60 minutes prior to skin incision, Pre-Op 07 (New Bag - Prov ider: Nelia Young RN) Gabapentin (Neurontin) cap 300 mg (COMPLETED) 300 mg, Oral, PREOP, First dose on Kaleigh 24 at 0700, Last dose on K[place] 11/22/23 at 0700, For 1 dose, Reduce dose to 100mg for renal impairment with CrCl less than 30 ml/min or for age above 65 years old Avoid if Alzheimer/dementia and CVA in past 3 months. Do Not use with Pregabalin. Administer 60 minutes prior to OR, Pre-Op 06 (Given - Provid er: Nelia Young RN) oxygen GAS Inhalation, OXYGEN, First dose on Kaleigh 11/22/23 at 1100, Until Discontinued, Device/Managed by: Low Flow Device, Goal SPO2 (%): 91-95, Starting Device: Nasal Cannula, Initial Flow Rate (LPM): 2, Lowest Support: Nasal Cannula: Flow 0-6 LPM. Titrate up/down by 1 LPM., Higher Support: Non-Rebreather (NRB) Mask: Minimum of 10 LPM. Titrate to maintain bag inflation., Titration Interval: Q2 minutes and as needed., Notify Provider: Other, Notify Provider [other]: If SpO2 less than 88% or NOT maintaining SpO2 greater than 92% notify physician immediately., Until awake OR SpO2 greater than 95% for 15 minutes, then Titrate O2 flow rate down to maintain SpO2 greater than 92% If SpO2 is less than 88% place patient on NRB mask at 10 LPM 1100 (Due) Continuous Medication Order 11/20/2023 11/21/2023 11/22/2023 isolyte-S pH 7.4 infusion Intravenous, at 25 mL/hr, Plasma-LYTE 148, isolyte-S, and isolyte-S pH 7.4 are considered equivalent - including for MAR barcode scanning., CONTINUOUS, Starting on Kaleigh 11/22/23 at 0700, Until [place] 11/22/23 at 1545, Pre-Op 0649 (New Bag - Prov ider: Nelia Young RN)0728 (Continue from Pre-Op - Provider: So Arthur CRNA/SHAILA)0906 (Rate Change - Provider: So Arthur CRNA/SHAILA)0907 (Anes Intra-Op Fluid - Provider: So Arthur CRNA/SHAILA) PRN Medication Order 11/20/2023 11/21/2023 11/22/2023 bupivacaine (Sensorcaine) 0.5 % inj (CANCELED) ONCE PRN INTRA PROCEDURE, Starting on Kaleigh 11/22/23 at 0809, Until [place] 11/22/23 at 1007, Intra-Op 0809 (Given - Provid er: Guille Aguirre MD - Comment: trocar sites X3) HYDROmorphone (Dilaudid) inj 0.5 mg 0.5 mg, IV Push, Q5 MIN PRN Pain, Severe, Pain, Moderate, Starting on Kaleigh 6//24 at 1025, Until Kaleigh 6//24 at 1545, For 8 doses, Administer only postop in PACU. Hold for respiratory rate less than 12. Administer up to a total of 4 mg., PACU ondansetron (Zofran) inj 4 mg 4 mg, IV Push, Q6H PRN Nausea, Starting on Kaleigh 6//24 at 1025, Until Kaleigh 6//24 at 1545, For 1 day, Administer only during the first hour post-op in PACU., PACU sodium chloride IR 0.9 % irrigation (CANCELED) ONCE PRN INTRA PROCEDURE, Starting on Kaleigh 24 at 0900, Until Kaleigh 624 at 1007, Intra-Op 0900 (Given - Provid er: Guille Aguirre MD - Comment: used for irrigation) documented in this encounter Advance Directives * [...]
--- OUTSIDE RECORDS SUMMARY | 2024-02-01 11:14 | External Medical Summary | Summary of Care ---
Author Name Unknown Organization [facility] Address [address] [place] [address] Phone [phone] Care Team Providers Care Environmental Inspector Name Role Phone Unavailable Primary Care Provider Unavailabl e Reason for Visit * Reason Onset Date Comments Appointment 11/19/2023 Pt caled to let me know he broke a tooth and can not get into see dentist till after surgery. Encounter Details Date Type Department Care Team (Late st Contact Info) Description 11/19/2023 Telephone General Surgery, [place] [id number] [facility], [place] [address] Appointment (Pt caled to let me know he br... Allergies No known active allergiesdocumented as of this encounter (statuses as of 11/19/2023) Medications Medication Sig Dispensed Refills Start Date End Date Status Buprenorphine HCl-Naloxone HCl 8-2 MG Sublingual Tablet Sublingual (Suboxone) Place under the tongue daily. 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 Right lower quadrant abdominal pain 10/30/2023 Nephrolithiasis 10/22/2023 Opioid dependence, in remission 01/04/2021 documented as of this encounter (statuses as of 11/19/2023) Resolved Problems Problem Noted Date Diagnosed Date Resolved Date Ureterolithiasis 10/03/2023 10/22/2023 Hydronephrosis 10/03/2023 10/22/2023 documented as of this encounter (statuses as of 11/19/2023) Immunizations Name Administration Dates Next Due COVID-19 [...] Telephone Encounter - Beth Thompson LPN - 11/19/2023 1:36 PM EDT Pt called in made us aware he had broke a tooth and no dental apt until after Surgery 11/22/23. Denies any signs of infection with this tooth injury. No swelling no drainage to severe pain documented in this encounter Plan of Treatment Upcoming Encounters Date Type Department Care Team (Latest Contact Info) Description 11/22/2023 7:30 AM EDT Hospital Encounter OR [facility], Operating Room, [facility] 1st [address] [place] [address] Guille Aguirre MD [address] [place] [address] 11/22/2023 7:30 AM EDT - 11/22/2023 10:01 AM EDT Surgery OR [facility], Operating Room, [facility] [address] [address] Guille Aguirre MD [address] [place] [address] LAPAROSCOPIC APPENDECTOMY 11/26/2023 11:00 AM EDT Scheduled Telephone General Surgery, [place] [address] [facility], Nurse Follow Up Phone Call Schedule Gen Surg [address] [place] [address] 12/07/2023 10:40 AM EDT Office Visit General Surgery, [address] [address] Guille Aguirre MD [address] [place] [phone] Scheduled Procedures Name Priority Associated Diagnoses Date/Ti me LAPAROSCOPIC APPENDECTOMY Disease of appendix, unspecified 11/22/2023 7:30 AM EDT Health Maintenance Due Date Last [...] (FLU shot) (Season Ended) 2024 Diabetes Screening 10/03/2026 10/04/2023, 0 10/03/2023, 09/30/2022, Additional history exists DTaP,Tdap,and Td Vaccines (2 [...] on File) Date Activated Date Inactivated Comments 10/03/2023 8:30 PM 10/04/2023 1:01 PM This order r eflects the patients wishes and were consensually agreed upon. Question Answer Comments Discussion of Advance Directives occurred with: Patient Does the patient have a Living Will? No Does the patient have Health Care Power of Attor keara? No
--- OUTSIDE RECORDS SUMMARY | 2024-02-01 11:15 | External Medical Summary | Summary of Care ---
Author Name Unknown Organization [facility] Address [address] [place] [address] Phone [phone] Care Team Providers Care Police Radio Dispatcher Name Role Phone Unavailable Primary Care Provider Unavailabl e Reason for Visit * Reason Onset Date Comments Advice 11/08/2023 Pt lmom having i ssues scheduling knee surgery due to his appendectomy cancelled and rescheduled Encounter Details Date Type Department Care Team (Late st Contact Info) Description 11/08/2023 Telephone General Surgery, [place] [address] [facility], [place] [address] Advice (Pt lmom having issues scheduling k... Allergies No known active allergiesdocumented as of this encounter (statuses as of 11/08/2023) Medications Medication Sig Dispensed Refills Start Date End Date Status Buprenorphine HCl-Naloxone HCl 8-2 MG Sublingual Tablet Sublingual (Suboxone) Place under the tongue daily. 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/30/2023 Right lower quadrant abdominal pain 10/30/2023 Nephrolithiasis 10/22/2023 Opioid dependence, in remission 01/04/2021 documented as of this encounter (statuses as of 11/08/2023) Resolved Problems Problem Noted Date Diagnosed Date Resolved Date Ureterolithiasis 10/03/2023 10/22/2023 Hydronephrosis 10/03/2023 10/22/2023 documented as of this encounter (statuses as of 11/08/2023) Immunizations Name Administration Dates Next Due COVID-19 [...] Telephone Encounter - Beth Thompson LPN - 11/08/2023 11:45 AM EDT Pt frustrated with scheduling knee surgery @ [facility] being told he can't have knee surgery due to appendectomy cancelled and rescheduled 6/6/24 documented in this encounter Plan of Treatment Upcoming Encounters Date Type Department Care Team (Latest Contact Info) Description 11/22/2023 7:30 AM EDT Hospital Encounter OR [facility], Operating Room, [facility] 1st Floor [address] [place] [address] Guille Aguirre MD [address] [place] [address] 11/22/2023 7:30 AM EDT - 11/22/2023 10:01 AM EDT Surgery OR [facility], Operating Room, [facility] 1st Floor [address] [place] [address] Guille Aguirre MD [address] [place] [address] LAPAROSCOPIC APPENDECTOMY 11/26/2023 11:00 AM EDT Scheduled Telephone General Surgery, [address] [address] [facility], Nurse Follow Up Phone Call Schedule Gen Surg [address] [place] [address] 12/07/2023 10:40 AM EDT Office Visit General Surgery, [address] [address] Guille Aguirre MD [address] [place] [address] Scheduled Procedures Name Priority Associated Diagnoses Date/Ti [...]
--- OUTSIDE RECORDS SUMMARY | 2024-02-01 11:15 | External Medical Summary | Summary of Care ---
Author Name Unknown Organization [facility] Address [address] [place] [address] Phone [phone] Care Team Providers Care Leasing Agent Name Role Phone Unavailable Primary Care Provider Unavailabl e Encounter Details Date Type Department Care Team ([facility] Contact Info) Description 11/07/2023 Orders Only General Surgery [address] [place] [address] Guille Aguirre MD [address] [place] [address] Disease of appendix, unspecified* Allergies No known active allergiesdocumented as of this encounter (statuses as of 11/07/2023) Medications Medication Sig Dispensed Refills Start Date End Date Status Buprenorphine HCl-Naloxone HCl 8-2 MG Sublingual Tablet Sublingual (Suboxone) Place under the tongue daily. 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/30/2023 Right lower quadrant abdominal pain 10/30/2023 Nephrolithiasis 10/22/2023 Opioid dependence, in remission 01/04/2021 documented as of this encounter (statuses as of 11/07/2023) Resolved Problems Problem Noted Date Diagnosed Date Resolved Date Ureterolithiasis 10/03/2023 10/22/2023 Hydronephrosis 10/03/2023 10/22/2023 documented as of this encounter (statuses as of 11/07/2023) Immunizations Name Administration Dates Next Due COVID-19 [...] Progress Notes * Guille Aguirre MD - 11/07/2023 12:41 PM EDT Orders placed to reschedule laparoscopic appendectomy documented in this encounter Plan of Treatment Upcoming Encounters Date Type Department Care Team (Late st Contact Info) Description 11/26/2023 11:00 AM EDT Scheduled Telephone General Surgery, [facility] [address] [place] [address] [facility], Nurse Follow Up Phone Call Schedule Gen Surg [address] [place] [address] 12/07/2023 10:40 AM EDT Office Visit General Surgery, [facility] [address] [place] [address] [place] [address] [place] [address] Scheduled Procedures Name Priority Associated Diagnoses Date/Ti me LAPAROSCOPIC APPENDECTOMY Disease of appendix, unspecified Health Maintenance Due Date Last Done Comments Lipid Panel 1980 Pneumococcal Vaccine: Pediatrics (0 to 5 Years) and At-Risk Patients (6 to 64 Years) (1 of 2 - PCV) 1986 HIV Screening 10/28/1995 Hepatitis B (2 of 3 - 3-dose series) 05/14/1998 04/16/1998 Hepatitis C Screening 1998 Depression Screening 02/08/2022 02/08/2021 COVID-19 Vaccine ( - season) 2023 12/02/2020, 11/04/2020 Influenza Vaccine [...] as of this encounter Visit Diagnoses Diagnosis Disease of appendix, unspecified- Primary documented in this encounter Advance Directives * [...]
--- NOTE | 2024-02-01 11:40 | Anesthesiology Progress Note ---
Date of Service February 01, 2024 Anesthesia Post Procedure Vital Signs Vital Signs: Temp Pulse Pulse Resp BP Pulse Ox O2 Del Method 02/01/24 11:30 61 14 112/68 95 Room Air 02/01/24 11:20 37.2 C 64 14 116/68 94 Room Air 02/01/24 11:05 57 L 12 120/73 98 Room Air 02/01/24 10:55 63 19 118/70 98 Room Air 02/01/24 10:45 68 18 127/67 98 Oxymask 02/01/24 10:36 36.5 C 67 15 113/75 96 Oxymask 02/01/24 07:50 36.7 C 95 H 20 168/106 H 96 Room Air O2 Flow Rate 02/01/24 11:30 02/01/24 11:20 02/01/24 11:05 02/01/24 10:55 02/01/24 10:45 3 02/01/24 10:36 6 02/01/24 07:50 Transfer of Care Handoff Completed per policy Notes Mental Status: alert / awake / arousable Patient Amnestic to Procedure: Yes Nausea / Vomiting: adequately controlled Pain: adequately controlled Airway Patency, RR, SpO2: stable & adequate BP & HR: stable & adequate Hydration State: stable & adequate Neuraxial Anesthesia: was administered and sensory block is resolving Anesthetic Complications: no major complications apparent
[2024-02-01] MEDS ORDERED: NALOXONE HCL 0.4 MG/1 ML VIAL/CARP IV PRN (12:31)
[2024-02-01] MEDS ORDERED: MAGNESIUM HYDROXIDE SUSP 30 ML UDC PO PRN (12:31)
[2024-02-01] MEDS ORDERED: bisacodyL 10 MG SUPP PR PRN (12:31)
[2024-02-01] MEDS ORDERED: HYDROmorphone INJ 0.5 MG/0.5 ML SYR IV PRN (12:31)
[2024-02-01] MEDS ORDERED: METOCLOPRAMIDE HCL INJ 5 MG/ML 2 ML VIAL IV PRN (12:31)
[2024-02-01] MEDS: KETOROLAC 30 MG/ML VIAL IV SCH (12:41)
[2024-02-01] MEDS: SODIUM CHLORIDE 0.9% 1,000 ML IV SCH (12:44)
[2024-02-01] MEDS: oxyCODONE HCL IR 5 MG TAB (IMMEDIATE RELEASE) PO PRN (16:51)
[2024-02-01] MEDS: ASPIRIN 81 MG ECTAB PO SCH (19:40)
[2024-02-01] MEDS: SENNA 8.6 MG TAB PO SCH (19:41)
[2024-02-01] MEDS: DOCUSATE SODIUM 100 MG CAP PO SCH (19:41)
[2024-02-02 07:12] VITALS: BP 143/72; PULSE 63; RESP 16; TEMP 98.1; O2SAT 98
[2024-02-02] MEDS: dexAMETHasone 4 MG TAB PO SCH (07:35)
[2024-02-02] MEDS: MULTIVITAMIN TAB PO SCH (07:35)
--- NOTE | 2024-02-02 07:43 | Orthopedic Progress Note ---
Date of Service February 02, 2024 Assessment & Plan (1) Status post left partial knee replacement: It is likely that the crunching he was hearing is normal postoperative noises with his initial range of motion. I do want to get an x-ray to make sure there is been no tibial plateau fracture. Although, that is unlikely. He is on aspirin for DVT prophylaxis. If the x-ray is negative, he can do physical therapy today for ambulation and range of motion exercises. He can then be discharged to home. He will follow-up with orthopedics in 2 weeks. Karen Frazier was seen and examined at bedside this morning. He is having a lot of pain in his left knee. He said when he first bent his knee yesterday he heard some crunching in his knee. Since that time he has been able to ambulate to the bathroom without much pain with pressure. He has no other complaints.. Review of Systems All systems reviewed & are unremarkable except as noted in HPI & below. Physical Exam On physical exam of the left knee, the dressing is clean and dry. His leg is out full extension. He is active dorsiflexion plantarflexion of his left ankle.. Results & Data Results & Data Laboratory Results . Diagnostic Findings . PG Care Time/CCT Total # of Minutes Spent Total Time Spent with Patient: Total time spent is greater than 50% in coordination of care (as documented) at patient's floor/unit and/or counseling patient: Coding Level of Care Code 29849 Post Operative Follow-Up Diagnoses Status post left partial knee replacement Z96.652
--- NOTE | 2024-02-02 08:21 | XRay Report ---
LEFT KNEE 2 VIEWS CLINICAL HISTORY: Left knee pain. Recent arthroplasty. Crepitus. FINDINGS: Portable AP and crosstable lateral views of the left knee are compared to study dated 2023. The skeletal structures are well mineralized. No fracture is seen. A hemiarthroplasty in the me dial compartment is in near-anatomic alignment. The lateral joint space is preserved. Skin clips, sub cutaneous gas, and soft tissue swelling around the left knee are expected postsurgical changes. IMPRESSION: 1. No acute bony abnormality is identified noting a hemiarthroplasty in place. 2. Expected postsurgical change is seen around the knee. Electronically signed by: Peter Liu M.D. 02/02/2024 8:18 AM
--- NOTE | 2024-02-03 09:38 | Discharge Summary ---
Date of Service February 03, 2024 Admission HPI (Per Admitting) Freddie is a pleasant 42-year-old male who works at [employer]. He had a chair kicked out from underneath him about a year ago while at work. He began having knee pain then. He denies any knee pain before the work-related incident. He then slipped on 05/18/2023 with a valgus-type injury. He had a lot of pain in his left knee. He says he feels his knee is giving out and is unstable. He says his knee is "dislocating." He saw my partner, Dr. Cade. He had an MRI of his knee and he had a left knee injection. Unfortunately, the MRI did show advanced arthritis mostly in the medial compartment of the left knee. He is really struggling with the left knee. He was placed on work restrictions. He was able to return to light duty for few weeks, but then he has since been off from work. After failing conservative treatment, he has elected to proceed with a left partial knee replacement. Admission Exam (Per Admitting) On physical examination of the left knee, he has tenderness palpation of the distal medial femoral condyle and over the medial joint line.. Principal Diagnosis Same as "Discharge Diagnosis" noted below under Discharge Instructions. Discharge Exam On physical exam of the left knee, the dressing is clean and dry. His leg is out full extension. He is active dorsiflexion plantarflexion of his left ankle.. Discharge Data Procedures Performed Operation Date: 02/01/24 09:00 Actual Procedures p Left Unicompartment Knee Arthroplasty(Left) - Kiel Combs DO Ordered Studies 02/01/24 05:00 US - OR guided needle placemen Routine Hospital Course (1) Status post left partial knee replacement: On February 01, 2024 Freddie arrived at [facility] and underwent a left partial knee replacement without complication. He had a spinal anesthetic. Postoperatively he was started on aspirin for DVT prophylaxis and transferred to the general orthopedic floors. His hospital course was uneventful. On postop day #1, his vital signs were stable and his pain was well-controlled. He was able to participate well with physical therapy doing ambulation and range of motion exercises. He felt a little crunching in his knee so I did obtain a repeat x-ray. The x-ray was negative. He was then discharged to home. He will follow-up with orthopedics in 2 weeks. PG Care Time/CCT Total # of Minutes Spent Total Time Spent with Patient: Total time spent is greater than 50% in coordination of care (as documented) at patient's floor/unit and/or counseling patient: Discharge Plan Discharge Items Patient Disposition: Home - Self-Care Reason For Visit: Degenerative Joint Disease Left Knee Discharge Diagnosis: Left partial knee replacement Activity: Per Instructions section Non-emergency contact: Surgeon Call non-emergency contact if: your wound has increased redness and your wound has increased drainage Follow-up/Referrals: PCP,NO [Primary Care Provider] - Diet: Regular Addtl Attending Provider Instructions: Activity and Therapy Recommendations: * If you are using [facility] then therapy will be provided at your home until they feel you have accomplished all of your goals. * If you are using [facility] then Physical Therapy will be provided until they feel you are ready to start Outpatient Physical Therapy. * If you are not using home therapy then Outpatient Physical Therapy should start about 3-5 days from your day of surgery. Therapy will last about 6-10 weeks * It is important not to put a pillow under your knee when you are relaxing or sleeping. It is just as important to make sure you are getting your knee perfectly straight as it is to regain your knee bend. * You were shown a series of exercises in the hospital. Do these exercises three times each day including the exercises you were shown in physical therapy. * Get up and walk several times each day. For the first four weeks, try not to stand or walk for more than one hour at a time. If you do stand or walk for more than one hour, you will not hurt anything, but your leg will likely swell. * As you feel comfortable, you may change from the walker or crutches to a cane and then to independent walking. Medications: * Narcotic You will likely be sent home from the hospital with a prescription for the narcotic pain medication that worked best throughout your stay. * Cefadroxil -take the antibiotic twice a day for 10 days to help prevent infection. * Aspirin Most patients will be required to take Aspirin 81mg twice a day for 6 weeks after surgery. This is obtained [id number] and a prescription is not necessary. * Other medications may be prescribed for specific circumstances. If you have any questions, please call the office at . * Resume previous home medications unless otherwise instructed TEDs/Elastic Stockings: The white elastic stockings help limit swelling and prevent blood clots from forming in your legs.~ The more you wear them, the more they work. Wear them for six weeks. Dressing Care: The dressing can be changed after physical therapy on postop day #1. Daily dry dressing changes for a few days, especially if the incision is still draining some. If the incision is not draining then you may leave the yury open to air. If there is a little bit of drainage or if the yury are getting stuck on your clothing then cover the incision with a dry dressing. The yury will be removed at your 2 week follow-up appointment. Showering: You may shower 5 days from the day of surgery as long as the incision is no longer draining. You may shower with the yury exposed. Let soapy water run over the yury and pat them dry. Do not scrub or soak the incision. Things To Watch For: * Drainage from the incision site that occurs more than one week after your surgery. * Increased redness at the incision site. * Fever above 102 degrees Fahrenheit. * Unusual chest pain or shortness of breath. * Call [facility] at with any of the above problems Follow-Up Visit: Follow-up with Dr. Combs's PA (Kiel Mathur) 2-3 weeks after your day of surgery. He will remove your yury and answer any questions. If you have any additional questions or concerns, Dr Combs is usually in the office at the same time and will be available An appointment was probably scheduled when you signed-up for surgery in the office. If you have any questions call Office Instructions: More detailed instructions as well as Frequently Asked Questions were provided in a folder by our office when you signed-up for surgery. Please review these instructions when you get home. If you have any further questions or concerns, please feel free to call the office at [phone] Pending Studies at Discharge: No Stand-Alone Forms: My [facility], Smoking Cessation Medications and DC Order Prescriptions: New oxycodone 5 mg Tablet 5 mg PO Q4H PRN (Reason: pain) Qty: 30 0RF aspirin 81 mg Tablet,Delayed Release (Dr/Ec) 81 mg PO BID 42 Days Qty: 0 0RF cefadroxil 500 mg capsule 500 mg PO BID 10 Days Qty: 20 0RF Discharge Orders: Discharge Order (Routine); Ordered 02/02/24 Ordered By: Kiel James/Other Patient Handouts: DVT Post Op Prevention, Home Safety After Joint Surgery Admission Data Admit Date/Time: 02/01/24 10:37 Attending Provider: Kiel Combs Admit Provider: Kiel Combs Primary Care Provider: PCP,NO Other Interventions: Discharge Summary Assessment (RN) Last Done: 02/02/24 09:11
== END 2024-02-02 10:26 | disposition home or self-care (01) ==
LOC: ASU 07:16 → 3E 07:16
DX: M17.12 Unilateral primary osteoarthritis, left knee; E66.9 Obesity, unspecified; Z68.37 Body mass index [BMI] 37.0-37.9, adult; F17.210 Nicotine dependence, cigarettes, uncomplicated; F17.220 Nicotine dependence, chewing tobacco, uncomplicated